=== PATIENT | female | born 1985 | race Hispanic/Latino ===

== ENCOUNTER 2018-10-13 21:20 | Emergency (ER) | payer MEDICAID ==
[2018-10-13 22:34] LABS: Basophils # (Auto) 0.1 K/mm3 (0.0-0.1); Basophils % (Auto) 2.3 % (0.0-1.8); Eosinophils # (Auto) 0.1 K/mm3 (0.0-0.4); Eosinophils % (Auto) 1.6 % (0.0-4.3); Hematocrit 33.4 % (30.3-42.9); Hemoglobin 10.9 gm/dl (10.1-14.3); Lymphocytes # (Auto) 2.1 K/mm3 (1.2-5.4); Mean Corpuscular HGB Conc 33 % (30-34); Mean Corpuscular Volume 74 fl (79-97); Monocytes # (Auto) 0.3 K/mm3 (0.0-0.8); Monocytes % (Auto) 5.3 % (0.0-7.3); Platelet Count 256 K/mm3 (140-440); Red Blood Count 4.52 M/mm3 (3.65-5.03); Red Cell Distribution Width 17.3 % (13.2-15.2)
--- NOTE | 2018-10-13 22:56 | Emergency Department Report ---
ED Psych HPI - General Chief Complaint: Medical Clearance Stated Complaint: AMS/POSSIBLE OD,LABS Time Seen by Provider: 10/13/18 21:57 Source: patient, EMS Mode of arrival: Stretcher Limitations: No Limitations - History of Present Illness Initial Comments: Prerna is a very pleasant 33 yo female with hx of PTSD, Bipolar disorder, OCD, anxiety and polysubstance abuse who presents to ER for medical clearance. She walked in to [facility] for treatment. She desires treatment for depression and drug use. Denies SI or HI. She just desires to get better. She uses opiates and benzodiazepines. She last used Xanax yesterday. She did not drink or use recreational drugs today. 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 She lives with her boyfriend and children. She is followed by [facility]. MD Complaint: suicidal ideation, feels depressed -: Gradual Associated Psychiatric Symptoms: depression, suicidal ideation, other (drug use) History of same: Yes Quality: constant Improves With: none Worsens With: none Context: recent drug abuse Associated Symptoms: denies other symptoms Treatments Prior to Arrival: other (walked in to [facility]) If Self Harm: admits thoughts of - Related Data Allergies Allergy/AdvReac Type Severity Reaction Status Date / Time No Known Allergies Allergy Unverified 10/13/18 21:58 ED Review of Systems ROS: Stated complaint: AMS/POSSIBLE OD,LABS Other details as noted in HPI Comment: All other systems reviewed and negative Constitutional: denies: fever, malaise Respiratory: denies: cough Cardiovascular: denies: chest pain Gastrointestinal: denies: abdominal pain Psychiatric: depression, suicidal thoughts ED Past Medical Hx - Past Medical History Previous Medical History?: Yes Hx Seizures: Yes (withdrawal related) Hx Psychiatric Treatment: Yes Additional medical history: bipolar d/o, psychosis, PTSD, OCD, depression, anxiety - Surgical History Past Surgical History?: No - Social History Smoking Status: Current Every Day Smoker ED Physical Exam - General Limitations: No Limitations General appearance: alert, in no apparent distress - Head Head exam: Present: atraumatic, normocephalic - Eye Eye exam: Present: normal appearance - ENT ENT exam: Present: mucous membranes moist - Neck Neck exam: Present: normal inspection, full ROM - Respiratory Respiratory exam: Present: normal lung sounds bilaterally. Absent: respiratory distress, wheezes, rales, rhonchi - Cardiovascular Cardiovascular Exam: Present: regular rate, normal rhythm, normal heart sounds. Absent: systolic murmur, diastolic murmur, rubs, gallop - GI/Abdominal GI/Abdominal exam: Present: soft, normal bowel sounds. Absent: distended, tenderness, guarding, rebound - Extremities Exam Extremities exam: Present: normal inspection - Back Exam Back exam: Present: normal inspection - Neurological Exam Neurological exam: Present: alert, oriented X3 - Psychiatric Psychiatric exam: Present: depressed, flat affect, suicidal ideation - Skin Skin exam: Present: warm, dry, intact, normal color. Absent: rash ED Course Vital Signs 10/13/18 22:10 Temperature 98.4 F Pulse Rate 61 Respiratory 18 Rate Blood Pressure 127/79 [Right] O2 Sat by Pulse 97 Oximetry ED Medical Decision Making - Lab Data Result diagrams: 10/13/18 22:18 10/13/18 22:18 - Medical Decision Making Prerna presents with acute depression denies SI. Hx of drug abuse. She desires treatment at [facility]. Prerna is medically cleared for psychiatric care. CBC chemistry serum tox UDS all within normal limits. She is discharged to self care. Strongly encouraged to return to [facility]. Critical care attestation.: If time is entered above; I have spent that time in minutes in the direct care of this critically ill patient, excluding procedure time. ED Disposition Clinical Impression: PTSD (post-traumatic stress disorder), Bipolar disorder, Acute depression, Polysubstance (excluding opioids) dependence Disposition: DC-01 TO HOME OR SELFCARE Is pt being admited?: No Does the pt Need Aspirin: No Condition: Stable Additional Instructions: Prerna is medically clear for psychiatric care. All tests obtained in the ED are normal. Referrals: JENIFER UMANZOR [Other] - 3-5 Days
[2018-10-13 23:05] LABS: Alanine Aminotransferase 10 units/L (7-56); Albumin 4.2 g/dL (3.9-5); BUN/Creatinine Ratio 10; Blood Urea Nitrogen 8 mg/dL (7-17); Calcium 9.3 mg/dL (8.4-10.2); Hemolysis Index 36
[2018-10-13 23:16] LABS: Amphetamine Screen,Urine PRESUMPTIVE NEGATIVE; Benzodiazepines Screen,Urine PRESUMPTIVE NEGATIVE; Cannabinoid Screen,Urine PRESUMPTIVE NEGATIVE; Cocaine Screen,Urine PRESUMPTIVE NEGATIVE; Methadone Screen,Urine PRESUMPTIVE NEGATIVE; Opiate Screen,Urine PRESUMPTIVE NEGATIVE
[2018-10-13 23:22] LABS: Bacteria,Urine 2+ /HPF (Negative); Bilirubin,Urine NEG (Negative); Blood,Urine NEG (Negative); Color,Urine Yellow (Yellow); Mucus,Urine FEW /HPF; Protein,Urine <15 mg/dL mg/dL (Negative); Urobilinogen,Urine < 2.0 mg/dL (<2.0)
[2018-10-14 04:19] VITALS: BP 115/78
== END 2018-10-14 04:00 | disposition home or self-care (01) ==
LOC: ED 21:20
DX: F43.12 Post-traumatic stress disorder, chronic (principal); F31.9 Bipolar disorder, unspecified; F17.200 Nicotine dependence, unspecified, uncomplicated; F15.10 Other stimulant abuse, uncomplicated; X58.XXXA Exposure to other specified factors, initial encounter; Y93.89 Activity, other specified; Y92.89 Other specified places as the place of occurrence of the external cause; Y99.8 Other external cause status
CPT/HCPCS: 36415; 80053; 80307; 80320; 81001; 84703; 85025; G0480

== ENCOUNTER 2018-10-15 19:51 | Inpatient (IN) | payer MEDICAID ==
[2018-10-15] MEDS ORDERED: ATIVAN IV ONE ×2 (19:56→20:33)
[2018-10-15] MEDS ORDERED: KEPPRA 1,000 MG/NS 0.75% 100ML 1,000 MG/100 ML BAG IV ONE ×2 (19:56→20:02)
[2018-10-15] MEDS ORDERED: NACL 0.9% 1000 ML 1,000 ML IV ONE (19:56)
[2018-10-15] MEDS ORDERED: ATIVAN ONE (20:00)
[2018-10-15] MEDS ORDERED: NACL 0.9% 1000 ML 2,000 ML ONE (20:01)
--- NOTE | 2018-10-15 20:03 | Emergency Department Report ---
HPI - General Chief Complaint: Altered Mental Status Time Seen by Provider: 10/15/18 19:56 - HPI HPI: 33-year-old female presents to the emergency department by EMS from [facility] with complaint of recurrent seizures. Most of the information about the patient and pre-arrival has been obtained by EMS and her one previous visit here, 2 days ago. So far, the patient has had 5 witnessed seizures pre- arrival and received a total of 4 mg of Ativan. She appears to have a focal seizure followed by a generalized seizure. The patient was here 2 days ago, 10/13/18, for a medical clearance to go to [facility] for depression and substance abuse. At that time she admitted to a history of benzodiazepine and opiate abuse but also had been complaining of some depression. EMS says that the patient has admitted to them that she took greater than 90 Xanax in the 4 days prior to her admission to the psychiatric facility. She also apparently has a seizure history and is supposed to be on Keppra 500 mg twice daily but admitted medication noncompliance. She has a past medical history of PTSD, bipolar disorder, OCD, anxiety and polysubstance abuse. At this time, the patient is having seizures and postictal and is currently a poor historian. ED Past Medical Hx - Past Medical History Hx Seizures: Yes (withdrawal related) Hx Psychiatric Treatment: Yes Additional medical history: bipolar d/o, psychosis, PTSD, OCD, depression, anxiety - Social History Smoking Status: Current Every Day Smoker ED Review of Systems ROS: Stated complaint: SEIZURES Other details as noted in HPI Comment: Unobtainable due to pts medical conditions Physical Exam - Physical Exam Physical Exam: GENERAL: The patient is well-developed well-nourished. HENT: Normocephalic. Atraumatic. Patient has moist mucous membranes. EYES: Pupils equal reactive to light bilaterally. NECK: Supple. Trachea is midline. CHEST/LUNGS: Clear to auscultation. There is no respiratory distress noted. HEART/CARDIOVASCULAR: Regular. There is no tachycardia. There is no murmur. ABDOMEN: Abdomen is soft, nontender. Patient has normal bowel sounds. There is no abdominal distention. SKIN: Skin is warm and dry. NEURO: Patient had a witnessed seizure and then a postictal period. MUSCULOSKELETAL: There is no obvious deformity. There is no evidence of acute injury. ED Course - Reevaluation(s) Reevaluation #1: The patient has become agitated. At first, the patient refused to have an EKG done. Now the patient has started to rip out her IV and all of the telemetry/monitor equipment attached to her and is threatening to leave. The patient has had 9 witnessed seizures, and while the patient is not currently post ictal, she does not appear to have the normal decision-making capacity. When I tried to explain to the patient that she will need further treatment of this status epilepticus, the patient says "I am going home since I'm going to anyways." She then said "I'm just going to go home and swallow 50 footballs, in reference to Xanax. While the patient says that it is not with the intent to kill herself, she has to understand that this is a extremely large quantity of medication and would be considered a intentional overdose and intentional self-harm. For these reasons, the patient has now been made a 1013. We will continue to treat her for her seizures. 10/15/18 21:02 10/15/18 21:23 The patient has had yet another seizure but at this point she has ripped out the IV. She has a very short postictal period and remains uncooperative and combative. Given the dangers of recurrent seizures, and given that the patient does not appear to have a normal decision-making capacity, she will be given some Geodon so that we can successfully continue to treat her medically. ED Medical Decision Making - Lab Data Result diagrams: 10/15/18 20:38 10/15/18 20:37 - Radiology Data Radiology results: report reviewed CT head/brain wo con INDICATION: Recurrent Seizures, AMS. TECHNIQUE: All CT scans at this location are performed using the following dose modulation technique: Automated exposure control. CONTRAST: None. COMPARISON: None available. FINDINGS: The ventricular system is appropriate in size and configuration witho ut midline shift. Negative for mass, stroke or hemorrhage. Imaged portions of the paranasal sinuses are clear. IMPRESSION: Negative CT brain without contrast. - Medical Decision Making This patient presented with recurrent seizures. She [facility], at least 2 or 3 with EMS and so far has had 3 witnessed seizures within the emergency department. It almost appears that she has a focal seizure followed by something more generalized. The patient does have a postictal period but it is often short. She has been reevaluated multiple times and in between the seizures, and after postictal periods, physical examination has been done and the patient does not appear to have any motor or sensory deficits in her cranial nerves are intact. The patient received multiple rounds of mild to moderate doses of Ativan without much improvement. However it seems that the patient has stopped having the seizure since the fosphenytoin was started a few hours ago. As previously mentioned, at one point in her ED course, the patient became very combative, agitated and was trying to leave the hospital. She pulled out her IV and all of the monitoring equipment. At that time, the patient did not appear to have a normal decision making capacity or to be safe to leave the hospital with the recurrent seizures. She then started making threats of intentional overdose. The patient says that it was not with the intent of killing herself, however she has been made a 1013 as this is still a threat of an intentional overdose with an extremely large amount of benzodiazepines such pills which is still considered intentional self- harm. The patient then started becoming more agitated and irate and inappropriate and was given a dose of Geodon. Even after this, the patient was still continuously monitored and did appear to calm down and is allowed us to continue her medical evaluation. She refused an EKG to be done. First, the patient refused CT scan of the head but later this was completed and it came back negative without any signs of bleed, shift, mass, ischemia, or any other acute process. Most of patient labs have been mostly unremarkable. The patient will need to be evaluated by the psychiatric team, but given that she has had close to 9 or 10 witnessed seizures, she will be a medical admission and has be en accepted by the hospitalist, Dr. Hendrix. I believe the patient's recurrent seizures are a combination of her noncompliance with her Keppra for seizure disorder, as well as some withdrawal from the large amount of benzodiazepines that she was previously on. - Differential Diagnosis benzodiazepine withdrawal, seizure disorder, hypoglycemia, subarachnoid Critical Care Time: Yes Critical care time in (mins) excluding proc time.: 35 Critical care attestation.: If time is entered above; I have spent that time in minutes in the direct care of this critically ill patient, excluding procedure time. Critical care time was spent on this patient during her initial evaluation, multiple re-evaluati ons, ordering and interpretation of labs and imaging, medications given for agitation/combativeness, discussion with the hospitalist service. Critical Care Time: 35 minutes ED Disposition Clinical Impression: Seizure disorder, Recurrent seizures, Noncompliance with medication regimen Benzodiazepine withdrawal Qualifiers: Complication of substance-induced condition: with unspecified complication Qualified Code(s): F13.239 - Sedative, hypnotic or anxiolytic dependence with withdrawal, unspecified Disposition: 09 OP ADMIT IP TO THIS HOSP Is pt being admited?: Yes Condition: Serious Time of Disposition: 00:11
[2018-10-15] MEDS ORDERED: CEREBYX IV ONE ×3 (20:38→21:00)
[2018-10-15 20:48] LABS: Basophils # (Auto) 0.1 K/mm3 (0.0-0.1); Basophils % (Auto) 1.1 % (0.0-1.8); Eosinophils % (Auto) 0.1 % (0.0-4.3); Hematocrit 31.8 % (30.3-42.9); Hemoglobin 10.5 gm/dl (10.1-14.3); Lymphocytes # (Auto) 0.9 K/mm3 (1.2-5.4); Mean Corpuscular HGB Conc 33 % (30-34); Mean Corpuscular Volume 74 fl (79-97); Monocytes # (Auto) 0.3 K/mm3 (0.0-0.8); Monocytes % (Auto) 5.9 % (0.0-7.3); Platelet Count 251 K/mm3 (140-440); Red Blood Count 4.32 M/mm3 (3.65-5.03); Red Cell Distribution Width 16.9 % (13.2-15.2)
[2018-10-15] MEDS ORDERED: [UNRECOGNIZED DRUG - OTHER] IV ONE (21:00)
[2018-10-15] MEDS ORDERED: [UNRECOGNIZED DRUG - OTHER] IV ONE (21:00)
[2018-10-15] MEDS ORDERED: NACL IV ONE ×2 (21:00)
[2018-10-15 21:14] LABS: Alanine Aminotransferase 10 units/L (7-56); Albumin 4.1 g/dL (3.9-5); BUN/Creatinine Ratio 15; Blood Urea Nitrogen 9 mg/dL (7-17); Calcium 8.9 mg/dL (8.4-10.2); Hemolysis Index 5
[2018-10-15] MEDS ORDERED: GEODON IM ONE (21:14)
[2018-10-15] MEDS ORDERED: WATER FOR INJ Sterile (PF) 10 ML ONE (21:23)
[2018-10-15 22:04] LABS: Bilirubin,Urine NEG (Negative); Blood,Urine NEG (Negative); Color,Urine Straw (Yellow); Mucus,Urine FEW /HPF; Protein,Urine <15 mg/dL mg/dL (Negative); Urobilinogen,Urine < 2.0 mg/dL (<2.0)
[2018-10-15 22:10] LABS: Amphetamine Screen,Urine PRESUMPTIVE NEGATIVE; Benzodiazepines Screen,Urine PRESUMPTIVE NEGATIVE; Cannabinoid Screen,Urine PRESUMPTIVE NEGATIVE; Cocaine Screen,Urine PRESUMPTIVE NEGATIVE; Methadone Screen,Urine PRESUMPTIVE NEGATIVE; Opiate Screen,Urine PRESUMPTIVE NEGATIVE
--- NOTE | 2018-10-15 23:34 | Cat Scan Report ---
CT head/brain wo con INDICATION: Recurrent Seizures, AMS. TECHNIQUE: All CT scans at this location are performed using the following dose modulation technique: Automated exposure control. CONTRAST: None. COMPARISON: None available. FINDINGS: The ventricular system is appropriate in size and configuration without midline shift. Nega tive for mass, stroke or hemorrhage. Imaged portions of the paranasal sinuses are clear. IMPRESSION: Negative CT brain without contrast. Signer Name: Jamari Junior MD Signed: 10/15/2018 11:30 PM Workstation Name: [id number]
[2018-10-15] MEDS ORDERED: SODIUM CHLORIDE FLUSH SYRINGE 10 ML IV PRN (23:51)
[2018-10-15] MEDS ORDERED: ZOFRAN IV PRN (23:51)
--- NOTE | 2018-10-15 23:51 | History and Physical Report ---
History of Present Illness Date of examination: 10/15/18 History of present illness: 33-year-old man with a history of PTSD, bipolar, polysubstance abuse was brought to the emergency room for evaluation of seizure. The patient is now sedated, unable to give a history. Per the emergency room physician she is at a total of 9 seizure, given 4 mg of IV Ativan total and also Geodon. He also expressed suicidal thoughts and the ER, stated that if she goes home she'll take a substantial amount of Xanax to review of system is unobtainable PAST MEDICAL HISTORY:PTSD, bipolar, polysubstance abuse PAST SURGICAL HISTORY: Known FAMILY HISTORY:UnKnown SOCIAL HISTORY: Substance abuse Medications and Allergies Allergies Allergy/AdvReac Type Severity Reaction Status Date / Time No Known Allergies Allergy Unverified 10/13/18 21:58 Exam - Physical Exam Narrative exam: General Apperance: The patient lying in bed no acute distress HEENT: Normocephalic, atraumatic. Pupils equally round and reactive to light, unable to do extraocular movement intact, and no sclericterus or JVD or thyromegaly or nodule. Neck supple, no carotid bruit, mucous membranes moist, ET tube in place Heart: S1-S2, regular is rhythm Lungs: Clear to auscultation bilaterally, breathing comfortable Abdomen: Positive bowel sounds, soft, nontender, nondistended, no organomegaly Extremities: No edema cyanosis clubbing Skin: no rash, nodule, warm and dry Neuro: sedated - Constitutional Vitals: Temp Pulse Resp BP Pulse Ox 98 F 75 21 131/80 97 10/15/18 20:25 10/15/18 22:00 10/15/18 22:00 10/15/18 22:00 10/15/18 22:00 Results - Labs CBC & Chem 7: 10/15/18 20:38 10/15/18 20:37 Labs: Abnormal lab results 10/15/18 10/15/18 10/15/18 Range/Units 20:37 20:37 20:37 MCV (79-97) fl MCH (28-32) pg RDW (13.2-15.2) % Lymph # (1.2-5.4) K/mm3 Seg Neutrophils % (40.0-70.0) % Creatinine 0.6 L (0.7-1.2) mg/dL Glucose 106 H (65-100) mg/dL TSH (0.270-4.200) mlU/mL Salicylates < 0.3 L (2.8-20.0) mg/dL Acetaminophen < 5.0 L (10.0-30.0) ug/mL 10/15/18 10/15/18 Range/Units 20:38 20:39 MCV 74 L (79-97) fl MCH 24 L (28-32) pg RDW 16.9 H (13.2-15.2) % Lymph # 0.9 L (1.2-5.4) K/mm3 Seg Neutrophils % 73.9 H (40.0-70.0) % Creatinine (0.7-1.2) mg/dL Glucose (65-100) mg/dL TSH 0.125 L (0.270-4.200) mlU/mL Salicylates (2.8-20.0) mg/dL Acetaminophen (10.0-30.0) ug/mL - Imaging and Cardiology CT Scan - head: report reviewed Assessment and Plan Assessment Seizures, acute on chronic PTSD bipolar polysubstance abuse plan Admit to medicine Continue IV Keppra, status post loading dose with Keppra and Dilantin IV Ativan as needed for seizure activity DVT prophylaxis, IV fluid, 1013
[2018-10-16] MEDS: ATIVAN IV PRN ×5 (02:29→21:49)
[2018-10-16] MEDS: NACL 0.9% 1000 ML 1,000 ML IV SCH ×2 (02:30→22:02)
[2018-10-16] MEDS: TYLENOL PO PRN (04:45)
[2018-10-16 08:00] LABS: Basophils % (Auto) 0.6 % (0.0-1.8); Eosinophils % (Auto) 0.4 % (0.0-4.3); Hematocrit 30.7 % (30.3-42.9); Hemoglobin 10.1 gm/dl (10.1-14.3); Lymphocytes # (Auto) 1.8 K/mm3 (1.2-5.4); Lymphocytes % (Auto) 34.2 % (13.4-35.0); Mean Corpuscular HGB Conc 33 % (30-34); Mean Corpuscular Volume 73 fl (79-97); Monocytes # (Auto) 0.4 K/mm3 (0.0-0.8); Monocytes % (Auto) 7.3 % (0.0-7.3); Platelet Count 245 K/mm3 (140-440); Red Blood Count 4.18 M/mm3 (3.65-5.03)
[2018-10-16 08:07] LABS: BUN/Creatinine Ratio 13; Blood Urea Nitrogen 8 mg/dL (7-17); Calcium 8.9 mg/dL (8.4-10.2); Hemolysis Index 0
[2018-10-16] MEDS ORDERED: KEPPRA 500 MG in D5W 100 ML IV SCH (10:00)
[2018-10-16] MEDS ORDERED: LOVENOX SUB-Q SCH (10:00)
[2018-10-16] MEDS: SODIUM CHLORIDE FLUSH SYRINGE 10 ML IV SCH ×2 (10:38→21:53)
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
[2018-10-16] MEDS: VISTARIL PO SCH ×3 (14:37→21:52)
[2018-10-16] MEDS ORDERED: HALDOL DECANOATE IM ONE (15:10)
[2018-10-16] MEDS ORDERED: GEODON IM ONE (16:36)
--- NOTE | 2018-10-16 17:45 | Consultation ---
History of Present Illness Consult date: 10/16/18 Reason for Consult: Seizure Chief complaint: Seizure History of present illness: Patient is a 33 y/o woman w/ a h/o anxiety, h/o seizures, bipolar d/o, PTSD, depression, polysubstance abuse. She was admitted recently at a drug rehabilitation facility, however was noted to have seizure-like episodes yesterday. She has recently been abusing benzodiazepines and opioids. Patient reportedly had about 9 seizures yesterday, and was given 4mg of ativan. She states that she has had seizures since the age of 5, and has been on gabapentin and keppra in the past, however has not been taking any seizure medications for the past 2 years. Patient was not noted to have loss of bowel/bladder control during the episodes yesterday. Past History Past Medical History: No medical history, other (anxiety, bipolar d/o, PTSD, depression, polysubstance abuse, seizures. ) Past Surgical History: No surgical history Social history: lives with family, prescription drug abuse Family history: no significant family history Medications and Allergies Allergies Allergy/AdvReac Type Severity Reaction Status Date / Time No Known Allergies Allergy Unverified 10/13/18 21:58 Active Meds: Active Medications Acetaminophen (Tylenol) 650 mg PO Q4H PRN PRN Reason: Pain MILD(1-3)/Fever >100.5/MCDERMOTT Last Admin: 10/16/18 04:45 Dose: 650 mg Documented by: Enoxaparin Sodium (Lovenox) 40 mg SUB-Q QDAY@1000 RICHARD Hydroxyzine Pamoate (Vistaril) 25 mg PO BID [facility] Last Admin: 10/16/18 14:40 Dose: Not Given Documented by: Sodium Chloride (Nacl 0.9% 1000 Ml) 1,000 mls @ 75 mls/hr IV DIRECT RICHARD Last Admin: 10/16/18 02:30 Dose: 75 mls/hr Documented by: Levetiracetam 1,000 mg/ (Dextrose) 110 mls @ 400 mls/hr IV Q12H [facility] Lorazepam (Ativan) 1 mg IV Q4H PRN PRN Reason: Seizures Last Admin: 10/16/18 13:03 Dose: 1 mg Documented by: Ondansetron HCl (Zofran) 4 mg IV Q8H PRN PRN Reason: Nausea And Vomiting Sodium Chloride (Sodium Chloride Flush Syringe 10 Ml) 10 ml IV BID RICHARD Last Admin: 10/16/18 10:38 Dose: 10 ml Documented by: Sodium Chloride (Sodium Chloride Flush Syringe 10 Ml) 10 ml IV PRN PRN PRN Reason: LINE FLUSH Review of Systems All systems: negative Neurological: convulsions Psychiatric: anxiety, depression Physical Examination - Vital Signs Vital Signs: Vital Signs Pulse Resp BP Pulse Ox 92 H 31 H 135/77 96 10/15/18 20:00 10/15/18 20:00 10/15/18 20:00 10/15/18 20:00 - Constitutional General appearance: uncomfortable - EENT EENT: Present: ATNC, PERRL, mucous membranes moist, hearing intact, vision intact - Respiratory Respiratory: Present: lungs clear, normal breath sounds, no respiratory distress - Cardiovascular Cardiovascular: Present: regular rate, normal S1, normal S2 Extremities: Present: no peripheral edema bilatateraly, no clubbing, cyanosis, no inflammation - Gastrointestinal Gastrointestinal: Present: normoactive bowel sounds, soft, non-tender - Integumentary Integumentary: Present: normal - Neurologic Cranial nerve examination: PERRL, EOMI, VFF, V1/V2/V3 grossly intact, face symmetric, tongue midline, intact, intact shoulder shrug Speech examination: intact Sensorimotor examination: intact Motor examination - right side: 5/5: biceps, triceps, wrist flexion, wrist extension, narcotics and/or vice detective, hip flexors, knee extensors, dorsiflexion, toe extension (EHL), plantarflexion Motor examination - left side: 5/5: biceps, triceps, wrist flexion, wrist extension, narcotics and/or vice detective, hip flexors, knee extensors, dorsiflexion, toe extension (EHL), plantarflexion Detailed sensory examination: intact, light touch Reflexes: 2+: ankle, bicep, knee, tricep - Musculoskeletal Musculoskeletal: Present: no fluid collection, no pain, normal range of motion - Psychiatric Psychiatric: Present: agitated Results - Laboratory Findings CBC and BMP: 10/16/18 06:40 10/16/18 06:40 Abnormal Lab Findings: Abnormal Labs 10/15/18 10/15/18 10/15/18 20:37 20:37 20:37 MCV MCH RDW Lymph # Seg Neutrophils % Chloride Creatinine 0.6 L Glucose 106 H TSH Salicylates < 0.3 L Acetaminophen < 5.0 L 10/15/18 10/15/18 10/16/18 20:38 20:39 06:40 MCV 74 L 73 L MCH 24 L 24 L RDW 16.9 H 17.0 H Lymph # 0.9 L Seg Neutrophils % 73.9 H Chloride Creatinine Glucose TSH 0.125 L Salicylates Acetaminophen 10/16/18 06:40 MCV MCH RDW Lymph # Seg Neutrophils % Chloride 108.6 H Creatinine 0.6 L Glucose TSH Salicylates Acetaminophen Assessment and Plan Patient is a 33 y/o woman w/ a h/o anxiety, bipolar d/o, PTSD, h/o seizures, depression, polysubstance abuse, who p/w seizure-like episodes yesterday. According to the patient's clinical findings, it is likely that she has been having seizures, as she has a recent h/o benzodiazepine abuse, and has been withdrawing from benzodiazepines recently. Plan: 1. Seizures: - likely due to benzodiazepine withdrawal, as well as non-compliance with previous seizure medications - Discussed with patient regarding importance of taking seizure medications while withdrawing from benzodiazepines, and patient agreed that she would attempt to take seizure medication. Discussed AED options, and it was felt that lamictal was a reasonable option at this time, as patient may have increased aggression and irritability from keppra. Discussed slow increase in dose over next few weeks, and patient expressed understanding of this. Also discussed potential side effects and risks of medication, and point agreed to start this medication. - Discussed with patient regarding no driving until cleared by DMV/DPS in concordance to local laws with recent seizure activity, and patient agreed and accepted that she would not drive. Also discussed other seizure precautions that patient should take. - Will check EEG. - Lamictal dose recommendation: 25mg daily for 2 weeks, then increase to 25mg BID for 2 weeks, then increase to 50mg BID for 1 week, then increase to 75mg BID for 1 week, then increase to 100mg BID, and stay on this dose. - Recommend for patient to establish care with outpatient neurologist for con tinuous care after she is discharged. Will continue to follow. Alessio Escalante MD Neurology
[2018-10-16] MEDS ORDERED: ATIVAN IV PRN (17:47)
[2018-10-16] MEDS ORDERED: WATER FOR INJ Sterile (PF) 10 ML ONE (18:08)
--- NOTE | 2018-10-16 19:21 | Progress Note ---
Assessment and Plan Assessment and plan: 33-year-old man with a history of PTSD, bipolar, polysubstance abuse was brought to the emergency room for evaluation of seizure. The patient is now sedated, unable to give a history. Per the emergency room physician she is at a total of 9 seizure, given 4 mg of IV Ativan total and also Geodon. He also expressed suicidal thoughts and the ER, stated that if she goes home she'll take a substantial amount of Xanax to review of system is unobtainable Seizures, acute on chronic: Pt reports remote hx, and also hx of keppra use and non compliance. PTSD bipolar Unspecified ANxiety DO polysubstance abuse ?Benzo withdrawal seizure plan Restriants for personal protection Continue sitter as patient remains 1013 Neurology input noted, extensive discussion, EEG, Lamictal started: Lamictal dose recommendation: 25mg daily for 2 weeks, then increase to 25mg BID for 2 weeks, then increase to 50mg BID for 1 week, then increase to 75mg BID for 1 week, then increase to 100mg BID, and stay on this dose. Continue IV Keppra, status post loading dose with Keppra and Dilantin CIWA protocol IV Ativan as needed for seizure activity DVT prophylaxis, IV fluid, 1013 Patient is medically cleared, and currently awaiting [facility] disposition Can transfer to [facility] History Interval history: Patient seen and examined, very belligerent with nursing staff, requiring restra ints due to safety for her self. Remains a 1013 Hospitalist Physical - Physical exam Narrative exam: VITAL SIGNS: Reviewed. GENERAL: The patient appears normally developed, Vital signs as documented. HEAD: No signs of head trauma. EYES: Pupils are equal. Extraocular motions intact. EARS: Hearing grossly intact. MOUTH: Oropharynx is normal. right lower lip with mild bleed, self stopped this am NECK: No adenopathy, no JVD. CHEST: Chest with clear breath sounds bilaterally. No wheezes, rales, or rhonchi. CARDIAC: Regular rate and rhythm. S1 and S2, without murmurs, gallops, or rubs. VASCULAR: No Edema. Peripheral pulses normal and equal in all extremities. ABDOMEN: Soft, non tender and non distended. No rebound or guarding, and no masses palpated. Bowel Sounds normal. MUSCULOSKELETAL: Good range of motion of all major joints. Extremities without clubbing, cyanosis or edema. NEUROLOGIC EXAM: Alert and oriented x 3 No focal sensory or strength deficits. Speech normal. Follows commands. PSYCHIATRIC: Mood emotional and intermittently aggressive SKIN: detail exam as documented in skin assessment - Constitutional Vitals: Temp Pulse Resp BP Pulse Ox 98.4 F 68 18 101/76 98 10/16/18 12:52 10/16/18 12:52 10/16/18 12:52 10/16/18 15:03 10/16/18 12:52 Results - Labs CBC & Chem 7: 10/16/18 06:40 10/16/18 06:40 Labs: Laboratory Last Values WBC 5.4 K/mm3 (4.5-11.0) 10/16/18 06:40 RBC 4.18 M/mm3 (3.65-5.03) 10/16/18 06:40 Hgb 10.1 gm/dl (10.1-14.3) 10/16/18 06:40 Hct 30.7 % (30.3-42.9) 10/16/18 06:40 MCV 73 fl (79-97) L 10/16/18 06:40 MCH 24 pg (28-32) L 10/16/18 06:40 MCHC 33 % (30-34) 10/16/18 06:40 RDW 17.0 % (13.2-15.2) H 10/16/18 06:40 Plt Count 245 K/mm3 (140-440) 10/16/18 06:40 Lymph % (Auto) 34.2 % (13.4-35.0) 10/16/18 06:40 [place] % (Auto) 7.3 % (0.0-7.3) 10/16/18 06:40 Eos % (Auto) 0.4 % (0.0-4.3) 10/16/18 06:40 Baso % (Auto) 0.6 % (0.0-1.8) 10/16/18 06:40 Lymph # 1.8 K/mm3 (1.2-5.4) 10/16/18 06:40 [place] # 0.4 K/mm3 (0.0-0.8) 10/16/18 06:40 Eos # 0.0 K/mm3 (0.0-0.4) 10/16/18 06:40 Baso # 0.0 K/mm3 (0.0-0.1) 10/16/18 06:40 Seg Neutrophils % 57.5 % (40.0-70.0) 10/16/18 06:40 Seg Neutrophils # 3.1 K/mm3 (1.8-7.7) 10/16/18 06:40 Sodium 145 mmol/L (137-145) 10/16/18 06:40 Potassium 4.0 mmol/L (3.6-5.0) 10/16/18 06:40 Chloride 108.6 mmol/L (98-107) H 10/16/18 06:40 Carbon Dioxide 24 mmol/L (22-30) 10/16/18 06:40 16 mmol/L 10/16/18 06:40 BUN 8 mg/dL (7-17) 10/16/18 06:40 0.6 mg/dL (0.7-1.2) L 10/16/18 06:40 Estimated GFR > 60 ml/min 10/16/18 06:40 13 % 10/16/18 06:40 Glucose 94 mg/dL (65-100) 10/16/18 06:40 Calcium 8.9 mg/dL (8.4-10.2) 10/16/18 06:40 0.30 mg/dL (0.1-1.2) 10/15/18 20:37 AST 15 units/L (5-40) 10/15/18 20:37 ALT 10 units/L (7-56) 10/15/18 20:37 63 units/L (35-129) 10/15/18 20:37 103 units/L (30-135) 10/15/18 20:37 7.2 g/dL (6.3-8.2) 10/15/18 20:37 4.1 g/dL (3.9-5) 10/15/18 20:37 1.3 % 10/15/18 20:37 TSH 0.125 mlU/mL (0.270-4.200) L 10/15/18 20:39 Free T4 1.36 ng/dL (0.76-1.46) 10/15/18 22:17 HCG, Qual Negative (Negative) 10/15/18 20:39 Straw (Yellow) 10/15/18 21:46 Clear (Clear) 10/15/18 21:46 7.0 (5.0-7.0) 10/15/18 21:46 Ur Specific [place] 1.009 (1.003-1.030) 10/15/18 21:46 <15 mg/dl mg/dL (Negative) 10/15/18 21:46 Neg mg/dL (Negative) 10/15/18 21:46 Neg mg/dL (Negative) 10/15/18 21:46 Neg (Negative) 10/15/18 21:46 Neg (Negative) 10/15/18 21:46 Neg (Negative) 10/15/18 21:46 < 2.0 mg/dL (<2.0) 10/15/18 21:46 Ur Leukocyte Esterase Neg (Negative) 10/15/18 21:46 2.0 /HPF (0.0-6.0) 10/15/18 21:46 2.0 /HPF (0.0-6.0) 10/15/18 21:46 U Epithel Cells (Auto) 2.0 /HPF (0-13.0) 10/15/18 21:46 Few /HPF 10/15/18 21:46 Salicylates < 0.3 mg/dL (2.8-20.0) L 10/15/18 20:37 Presumptive negative 10/15/18 21:46 Presumptive negative 10/15/18 21:46 Acetaminophen < 5.0 ug/mL (10.0-30.0) L 10/15/18 20:37 Ur Barbiturates Screen Presumptive negative 10/15/18 21:46 Ur Phencyclidine Scrn Presumptive negative 10/15/18 21:46 Ur Amphetamines Screen Presumptive negative 10/15/18 21:46 U Benzodiazepines Scrn Presumptive negative 10/15/18 21:46 Presumptive negative 10/15/18 21:46 U Marijuana (THC) Screen Presumptive negative 10/15/18 21:46 Disclamer 10/15/18 21:46 Plasma/Serum Alcohol < 0.01 % (0-0.07) 10/15/18 20:37 Active Medications - Current Medications Current Medications: Generic Name Dose Route Start Last Admin Trade Name Freq PRN Reason Stop Dose Admin Acetaminophen 650 mg 10/15/18 23:51 10/16/18 04:45 Tylenol PO 650 mg Q4H PRN Administration Pain MILD(1-3)/Fever >100.5/MCDERMOTT Enoxaparin Sodium 40 mg 10/17/18 10:00 Lovenox SUB-Q QDAY@1000 RICHARD Hydroxyzine Pamoate 25 mg 10/16/18 14:00 10/16/18 14:40 Vistaril PO Not Given BID RICHARD Sodium Chloride 1,000 mls @ 75 mls/hr 10/15/18 23:45 10/16/18 02:30 Nacl 0.9% 1000 Ml IV 75 mls/hr DIRECT RICHARD Administration Lamotrigine 25 mg 10/16/18 22:00 Lamictal PO BID RICHARD Lorazepam 1 mg 10/15/18 23:54 10/16/18 13:03 Ativan IV 1 mg Q4H PRN Administration Seizures Lorazepam 2 mg 10/16/18 17:47 Ativan IV Q1HR PRN CIWA-Ar 8-15 Lorazepam 4 mg 10/16/18 17:47 Ativan IV Q1HR PRN CIWA-Ar 16-25 Ondansetron HCl 4 mg 10/15/18 23:51 Zofran IV Q8H PRN Nausea And Vomiting Sodium Chloride 10 ml 10/16/18 10:00 10/16/18 10:38 Sodium Chloride Flush Syringe 10 Ml IV 10 ml BID RICHRAD Administration Sodium Chloride 10 ml 10/15/18 23:51 Sodium Chloride Flush Syringe 10 Ml IV PRN PRN LINE FLUSH
[2018-10-16] MEDS ORDERED: KEPPRA 1,000 MG in D5W 100 ML IV SCH (22:00)
[2018-10-16] MEDS: LaMICtal PO SCH (22:26)
[2018-10-17] MEDS: TYLENOL PO PRN (05:03)
[2018-10-17] MEDS: ATIVAN IV PRN ×3 (05:37→20:34)
[2018-10-17] MEDS: LaMICtal PO SCH ×4 (09:28→22:35)
[2018-10-17] MEDS: SODIUM CHLORIDE FLUSH SYRINGE 10 ML IV SCH ×2 (09:29→22:36)
[2018-10-17] MEDS: VISTARIL PO SCH ×2 (09:29→22:35)
[2018-10-17] MEDS ORDERED: LOVENOX SUB-Q SCH (10:00)
[2018-10-17] MEDS ORDERED: KEPPRA 1,500 MG in D5W 100 ML IV ONE (10:15)
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
[2018-10-17] MEDS ORDERED: MORPHINE IV ONE (11:00)
--- NOTE | 2018-10-17 14:08 | Progress Note ---
Assessment and Plan Patient is a 33 y/o woman w/ a h/o anxiety, bipolar d/o, PTSD, h/o seizures, h/p pseudoseizures, depression, polysubstance abuse, who p/w seizure-like episodes yesterday. According to the patient's clinical findings, it is likely that she h as been having seizures, as she has a recent h/o benzodiazepine abuse, and has been withdrawing from benzodiazepines recently. Plan: 1. Seizures: - likely due to benzodiazepine withdrawal, as well as non-compliance with previous seizure medications. Possibility of pseudo-seizures, as patient was w itnessed to have an episode today, which did not appear to be a seizure, as patient had eyes closed, had mild pelvic thrusting, and began talking soon after episode. - Discussed with patient regarding importance of taking seizure medications while withdrawing from benzodiazepines, and patient agreed that she would take seizure medication. Discussed AED options, and it was felt that lamictal was a reasonable option at this time, as patient may have increased aggression and irritability from keppra. Discussed slow increase in dose over next few weeks, and patient expressed understanding of this. Also discussed potential side effects and risks of medication, and point agreed to start this medication. - Patient reportedly initially refused lamictal today, then later took it - Patient was refusing EEG this morning, however later agreed to have it. - Discussed with patient regarding no driving until cleared by DMV/DPS in concordance to local laws with recent seizure activity, and patient agreed and accepted that she would not drive. Also discussed other seizure precautions that patient should take. - Will check EEG- patient initially refused today, but later agreed. - Lamictal dose recommendation: 25mg daily for 2 weeks, then increase to 25mg BID for 2 weeks, then increase to 50mg BID for 1 week, then increase to 75mg BID for 1 week, then increase to 100mg BID, and stay on this dose. - Recommend for patient to establish care with outpatient neurologist for continuous care after she is discharged. - Recommend ativan 1mg stat for seizures lasting longer than 2 minutes. Please call neurology stat if patient has a seizure. Will continue to follow. Alessio Escalante MD Neurology Subjective Date of service: 10/17/18 Principal diagnosis: Seizure Interval history: Patient reported to have 2 brie fseizures this morning, each lasting <1 minute. Patient returned to abseline immediately after each episode. Was not given ativan with these episodes. Objective - Vital Sign Vital Signs - 12hr 10/17/18 10/17/18 04:08 05:03 Temperature 98.3 F Pulse Rate 83 Respiratory 18 18 Rate Blood Pressure 106/61 [Left] - General Apperance Constitutional: uncomfortable - EENT EENT: ATNC, PERRL, mucous membranes moist, hearing intact, vision intact - Respiratory Respiratory: lungs clear, normal breath sounds - Cardiovascular Cardiovascular: regular rate, normal S1, normal S2 Extremities: no peripheral edema bilat, no clubbing, cyanosis - Gastrointestinal Gastrointestinal: normoactive bowel sounds, soft, non-tender - Integumentary Integumentary: normal - Neurologic Cranial nerve examination: PERRL, EOMI, VFF, V1/V2/V3 grossly intact, face symmetric, tongue midline Speech examination: intact Detailed motor examination: full strength in all freddie Motor examination - right side: 5/5: biceps, triceps, wrist flexion, wrist extension, 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[employer], hip flexors, knee extensors, dorsiflexion, toe extension (EHL), plantarflexion Motor examination - left side: 5/5: biceps, triceps, wrist flexion, wrist ext ension, 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[employer], hip flexors, knee extensors, dorsiflexion, toe extension (EHL), plantarflexion Detailed sensory examination: intact, light touch Reflexes: 2+: ankle, bicep, knee, tricep Cerebellar examination: other (intact to FTN and HTS) - Musculoskeletal Musculoskeletal: no fluid collection, no pain - Psychiatric Psychiatric: agitated - Laboratory Findings CBC and BMP: 10/16/18 06:40 10/16/18 06:40 Abnormal Lab Findings: Abnormal Labs 10/15/18 10/15/18 10/15/18 20:37 20:37 20:37 MCV MCH RDW Lymph # Seg Neutrophils % Chloride Creatinine 0.6 L Glucose 106 H TSH Salicylates < 0.3 L Acetaminophen < 5.0 L 10/15/18 10/15/18 10/16/18 20:38 20:39 06:40 MCV 74 L 73 L MCH 24 L 24 L RDW 16.9 H 17.0 H Lymph # 0.9 L Seg Neutrophils % 73.9 H Chloride Creatinine Glucose TSH 0.125 L Salicylates Acetaminophen 10/16/18 06:40 MCV MCH RDW Lymph # Seg Neutrophils % Chloride 108.6 H Creatinine 0.6 L Glucose TSH Salicylates Acetaminophen
--- NOTE | 2018-10-17 14:48 | Progress Note ---
Subjective - Reason for Consult Consult date: 10/17/18 Reason for consult: Psychiatry Follow-up - Chief Complaint Chief complaint: 33 y.o. white female who presented to the ER for seizure activity while at [facility]. Per the record, the patient stated something about overdosing on Xanax. Today the patient was irritable and in restraints during the assessment. Per the staff, the patient attempted to elope and was brought back to her room by security. She stated that she felt like she wasn't being given her medications. Also, she's upset about being on a 1013. The patient was explained the 1013 process and what need to happen so her 1013 can be rescinded, she verbalized understanding. She denies SI/HI's and AVH's. She stated, "I'm good." Mental Status Exam - Vital signs Last Vital Signs Temp 98.3 F 10/17/18 04:08 Pulse 83 10/17/18 04:08 Resp 18 10/17/18 05:03 BP 106/61 10/17/18 04:08 Pulse Ox 98 10/16/18 23:00 - Exam Narrative exam: MSE: Appearance: in a hospital attire Behavior: regular eye contact Speech: regular rate and tone Mood: "okay" Affect: congruent to mood Thought Process: circumstantial Thought Content: denies SI/HI's and AVH's Motor Activity: sitting up in bed Cognition: A/O x3 Insight: variable Judgment: poor Assessment and Plan Impression: Unspecified Anxiety DO. R/O PTSD. Hx of Opiate/benzo abuse per the patient. Today the patient was irritable during the assessment. The patient was in restraints. DDx: MDD Recommendation/Plan: Reevaluate the patient's 1013 in 24 hours. Continue Vistaril 25 mg PO BID for anxiety. Dispo: If the patient's 1013 is rescinded in 24 hours she can follow up with [facility] for outpatient rehab/psy services. Will staff with Dr Lucinda Zhang. Staffed with Dr Lucinda Zhang.
[2018-10-17] MEDS: HABITROL TD SCH (15:58)
[2018-10-17] MEDS ORDERED: MORPHINE IV PRN (17:50)
[2018-10-17] MEDS: MORPHINE IV PRN ×2 (18:21→22:35)
--- NOTE | 2018-10-17 23:15 | Electroencephalogram Report ---
Electroencephalogram EEG Date of exam: 10/17/18 History: Patient is a 33 y/o woman w/ a h/o anxiety, bipolar d/o, PTSD, h/o seizures, h/p pseudoseizures, depression, polysubstance abuse, who p/w seizure-like episodes. Impression: Impression: Normal waking EEG. - Limited due to significant motion artifact and patient taking off leads. Description: The waking background shows an appropriate organization with well-defined anterior posterior voltage and frequency gradients. Posteriorly, there is a well-developed alpha rhythm of [8] Hz which is symmetrical and bilaterally reactive. Anteriorly, there is a pattern of lower voltage and theta and beta range frequencies. Photic stimulation was performed, no photic drive noted. Throughout, the recording there are no epileptiform abnormalities, focal or lateralizing features, or significant interhemispheric findings. Intermittent beta activity noted, likely due to benzodiazepine use. Interpretation: No epileptiform activity noted during this EEG. A normal EEG does not rule out seizures. Clinical correlation required. Intermittent beta activity noted, likely due to benzodiazepine use.
[2018-10-18] MEDS ORDERED: RESTORIL PO PRN (01:02)
[2018-10-18] MEDS: MORPHINE IV PRN ×3 (04:07→12:41)
--- NOTE | 2018-10-18 07:35 | Progress Note ---
Subjective - Reason for Consult Consult date: 10/18/18 Reason for consult: Psychiatric Follow-up Evaluation - Chief Complaint Chief complaint: " I feel better." Patient is a 33 y.o. white female who presented to the ER for seizure activity while at [facility]. Per the record, the patient stated something about overdosing on Xanax. Today the patient is calm and cooperative during the assessment. She states" I haven't been on benzodiazepines for over 1 year. She verbalizes " I get tested 3 times a week. Actually, I'm in a mental health court program." She reports appropriate sleep and appetite. She denies SI/HI's, A/VH's, delusions, and cravings/withdrawal symptoms from drugs. " At the time that patient's 1013 is rescinded patient is in no imminent danger to self/others. Discussed medications/coping skills. Patient verbalizes full under standing. Provider doesn't have consent to contact patient's family. She states, " that's okay." No agitation noted/reported. Mental Status Exam - Vital signs Last Vital Signs Temp 98.3 F 10/17/18 04:08 Pulse 83 10/17/18 04:08 Resp 18 10/17/18 05:03 BP 106/61 10/17/18 04:08 Pulse Ox 98 10/16/18 23:00 - Exam Narrative exam: Mental Status Exam: Appearance: in a hospital attire Behavior: regular eye contact Speech: regular rate and tone Mood: "I feel better" Affect: congruent to mood Thought Process: circumstantial Thought Content: denies SI/HI's , A/VH's, and delusions Motor Activity: sitting up in bed Cognition: A/O x 3 Insight: fair to variable Judgment: fair to variable Assessment and Plan Impression: Unspecified Anxiety DO. R/O PTSD. Hx of Opiate/benzo abuse per the patient. Today the patient is calm and cooperative during the assessment. The patient is without restraints. Per patient she has court in the morning. Per patient if she isn't present she will be "kicked out" of her program. She denies SI/HI's, A/VH's, delusions, cravings/withdrawals. She is in no imminent danger to self or others. DDx: MDD Recommendation/Plan: 1. Will rescind patient's 1013. 2. Continue Vistaril 25 mg PO BID for anxiety. Disposition: Patient will follow up at [facility] in [facility] for outpatient rehab/psychiatric services. Staffed with Dr Lucinda Zhang.
[2018-10-18] MEDS: VISTARIL PO SCH (09:27)
[2018-10-18] MEDS: LaMICtal PO SCH (09:27)
[2018-10-18] MEDS: HABITROL TD SCH (09:27)
[2018-10-18 12:23] VITALS: BP 103/55
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
== END 2018-10-18 16:15 | disposition home or self-care (01) | DRG 101 ==
LOC: ED 19:51 → 4A 23:51 → 3A 10-16 21:37
PROVIDERS: ADMIT Internal Medicine; ATTEND Internal Medicine
DX: G40.901 Epilepsy, unspecified, not intractable, with status epilepticus (principal); F19.20 Other psychoactive substance dependence, uncomplicated; F31.9 Bipolar disorder, unspecified; F43.10 Post-traumatic stress disorder, unspecified; G89.4 Chronic pain syndrome; F13.239 Sedative, hypnotic or anxiolytic dependence with withdrawal, unspecified; Z91.19 Patient's noncompliance with other medical treatment and regimen; Z71.89 Other specified counseling
CPT/HCPCS: 36415; 70450; 80048; 80053; 80307; 80320; 81001; 82550; 84439; 84443; 84703; 85025; 93005; 93010; 95819; G0378; G0480; J1631; J1650; J1953; J2060; J2270; J2405; J3486; J7030; Q0177; Q2009